=== PATIENT | female | born 1980 | race African-American/Black ===

== ENCOUNTER 2017-01-20 18:09 | Inpatient (IN) | payer OTHER ==
[2017-01-20 18:35] VITALS: BMI 24.5
--- NOTE | 2017-01-20 18:45 | HP ---
COWS - Scale Resting Pulse: 0= [place] 80 or Below Sweatin=Flushed/Facial Moisture Restless Observation: 1= Difficult to Sit Still Pupil Size: 2= Moderately Dilated Bone or Joint Aches: 1= Mild Discomfort Runny Nose/ Eye Tearin= Runny Nose/Eyes GI Upset > 30mins: 1= Stomach Cramp Tremor Observation: 2= Slight Tremor Visible Yawning Observation: 1= 1-2x During Session Anxiety or Irritability: 2=Irritable/Anxious Goose Flesh Skin: 0=Smooth Skin COWS Score: 14 Admission ROS S - [facility] Chief Complaint: Withdrawal sx. Allergies/Adverse Reactions: Allergies Allergy/AdvReac Type Severity Reaction Status Date / Time mushroom Allergy Severe Rash Verified 09/20/16 13:23 No Known Drug Allergies Allergy Verified 09/20/16 13:23 NKDA Allergy Uncoded 09/18/16 16:02 History of Present Illness: 36 y/o woman with a long hx. of drug dependence is admitted for detox.Pt. has been in previous detox,denies being drug free for a significant period. Exam Limitations: No Limitations - Ebola screening Have you traveled outside of the country in the last 21 days: No Have you had contact with anyone from an Ebola affected area: No Have you been sick,other than usual withdrawal symptoms: No Do you have a fever: No - Review of Systems Constitutional: Diaphoresis EENT: reports: Nose Congestion Respiratory: reports: No Symptoms reported Cardiac: reports: No Symptoms Reported GI: reports: Nausea, Abdominal cramping : reports: No Symptoms Reported Musculoskeletal: reports: Back Pain, Joint Pain, Muscle Pain Integumentary: reports: Sweating Neuro: reports: Headache, Tremors Endocrine: reports: No Symptoms Reported Hematology: reports: No Symptoms Reported Psychiatric: reports: No Sypmtoms Reported Other Systems: Reviewed and Negative Patient History - Patient Medical History Hx Anemia: No Hx Asthma: Yes Hx Chronic Obstructive Pulmonary Disease (COPD): No Hx Cancer: No Hx Cardiac Disorders: No Hx Congestive Heart Failure: No Hx Hypertension: Yes Hx Hypercholesterolemia: No Hx Pacemaker: No HX Cerebrovascular Accident: No Hx Seizures: No Hx Dementia: No Hx Diabetes: No Hx Gastrointestinal Disorders: No Hx Liver Disease: No Hx Genitourinary Disorders: No Hx Sexually Transmitted Disorders: Yes (chlamydia) Hx Renal Disease (ESRD): No Hx Thyroid Disease: No Hx Human Immunodeficiency Virus (HIV): No Hx Hepatitis C: No Hx Depression: Yes (thoughts in the past) Hx Suicide Attempt: Yes Hx Bipolar Disorder: No Hx Schizophrenia: No - Patient Surgical History Past Surgical History: No Hx Neurologic Surgery: No Hx Cataract Extraction: No Hx Cardiac Surgery: No Hx Lung Surgery: No Hx Breast Surgery: No Hx Breast Biopsy: No Hx Abdominal Surgery: No Hx Appendectomy: No Hx Cholecystectomy: No Hx Genitourinary Surgery: No Hx Section: No Hx Orthopedic Surgery: No Other Surgical History: drainage of bartholin cyst left side Anesthesia Reaction: No - PPD History Previous Implant?: Yes Documented Results: Negative w/proof Implanted On Prior [facility] Admission?: Yes Date: 01/01/16 Results: 0mm PPD to be Administered?: Yes - Reproductive History Patient is a Female of Child Bearing Age (11 -55 yrs old): Yes Last Menstrual Period: 01/10/17 Patient : No - Smoking Cessation Smoking history: Current every day smoker Have you smoked in the past 12 months: Yes Aproximately how many cigarettes per day: 20 Cigars Per Day: 0 Hx Chewing Tobacco Use: No Initiated information on smoking cessation: Yes 'Breaking Loose' booklet given: 01/20/17 - Substance & Tx. History Hx Alcohol Use: No Hx Substance Use: Yes Substance Use Type: Cocaine, Heroin Hx Substance Use Treatment: Yes (Detox) - Substances Abused Crack Route: Smoking Frequency: Daily Amount used: $100-200.00 Age of first use: 12 Date of Last Use: 01/20/17 Heroin Route: Inhalation Frequency: Daily Amount used: 10 bags Age of first use: 22 Date of Last Use: 01/19/17 (last night into this AM) Family Disease History - Family Disease History Family Disease History: CA: Mother, Other: Father (SHOT ) Admission Physical Exam BHS - Vital Signs Vital Signs: Vital Signs - 24 hr 01/20/17 18:31 Temperature 98.2 F Pulse Rate 75 Respiratory 18 Rate Blood Pressure 134/86 - Physical General Appearance: Yes: Irritable, Sweating, Anxious HEENTM: Yes: Nasal Congestion, Rhinorrhea Respiratory: Yes: Chest Non-Tender, Lungs Clear, Normal Breath Sounds Neck: Yes: Supple Breast: Yes: Breast Exam Deferred Cardiology: Yes: Regular Rhythm, Regular Rate, S1, S2 Abdominal: Yes: Normal Bowel Sounds, Non Tender, Soft Genitourinary: Yes: Within Normal Limits Back: Yes: Within Normal Limits Musculoskeletal: Yes: Within Normal Limits Extremities: Yes: Tremors Neurological: Yes: Fully Oriented, Alert Integumentary: Yes: Diaphoresis Lymphatic: Yes: Within Normal Limits - Diagnostic (1) Opioid dependence with withdrawal Current Visit: Yes Status: Acute (2) Cocaine dependence Current Visit: Yes Status: Chronic Qualifiers: Substance use status: uncomplicated Qualified Code(s): F14.20 - Cocaine dependence, uncomplicated Cleared for Admission [facility] - Detox or Rehab [facility] Level of Care: Medically Managed Detox Regimen/Protocol: Methadone [facility] Breath Alcohol Content Breath Alcohol Content: 0 Urine Pregancy Test - Result Urine Test Results: Negative- NO Line Present Urine Drug Screen - Results Drug Screen Negative: No Urine Drug Screen Results: DAMION-Cocaine, OPI-Opiates
[2017-01-20] MEDS ORDERED: MAG HYDROX/AL HYDROX/SIMETH 30 ML UNIT-DOSE CUP PO PRN (18:53)
[2017-01-20] MEDS ORDERED: guaiFENesin/D-METHORPHAN HB 10 ML UNIT-DOSE CUPS PO PRN (18:53)
[2017-01-20] MEDS ORDERED: hydrOXYzine PAMOATE 50 MG CAPSULE (FP) PO PRN (18:53)
[2017-01-20] MEDS ORDERED: MAGNESIUM CITRATE 300 ML BOTTLE PO PRN (18:53)
[2017-01-20] MEDS ORDERED: diazePAM 5 MG TABLET PO PRN (18:53)
[2017-01-20] MEDS ORDERED: LOPERAMIDE HCL 2 MG CAPSULE PO PRN (18:53)
[2017-01-20] MEDS ORDERED: NICOTINE POLACRILEX 2 MG GUM BC PRN (18:53)
[2017-01-20] MEDS ORDERED: ACETAMINOPHEN 325 MG TABLET (FP) PO PRN (18:53)
[2017-01-20] MEDS ORDERED: METHADONE HCL 10 MG TABLET (FOR DETOX USE ONLY) PO ONE ×2 (18:53→23:00)
[2017-01-20] MEDS ORDERED: P-EPHED 60MG/TRIPROLIDI 2.5MG TABLET PO PRN (18:53)
[2017-01-20] MEDS ORDERED: IBUPROFEN 400 MG TABLET (FP) PO PRN (18:53)
[2017-01-20] MEDS ORDERED: MAGNESIUM HYDROX 2400MG/30ML ORAL SUSPENSION 30 ML CUP PO PRN (18:53)
[2017-01-20] MEDS ORDERED: MENTHOL/PHENOL 1 EACH UD MM PRN (18:53)
[2017-01-20] MEDS ORDERED: ALBUTEROL SO4 6.7 GM HFA INHALER IH PRN (18:56)
[2017-01-20] MEDS: NICOTINE 21 MG/24 HOURS TOPICAL PATCH TD SCH (19:52)
[2017-01-20] MEDS: BUDESONIDE/FORMETEROL FUMARATE 80/4.5 mcg INHALER IH SCH (22:55)
[2017-01-20] MEDS: THIAMINE HCL 100 MG TABLET (FP) PO SCH (22:56)
[2017-01-21] MEDS ORDERED: METHADONE HCL 10 MG TABLET (FOR DETOX USE ONLY) PO ONE (10:00)
[2017-01-21] MEDS: BUDESONIDE/FORMETEROL FUMARATE 80/4.5 mcg INHALER IH SCH ×2 (11:06→22:19)
[2017-01-21] MEDS: NICOTINE 21 MG/24 HOURS TOPICAL PATCH TD SCH (11:06)
[2017-01-21] MEDS: PRENATAL VITAMINS W/ FOLIC ACID TABLET (FP) PO SCH (11:06)
[2017-01-21 11:18] LABS: ALK PHOS 57 U/L (45-117); ANION GAP 5 (8-16); BILIRUBIN,TOTAL 0.4 mg/dL (0.2-1.0); CALCIUM 8.2 mg/dL (8.5-10.1); CO2 29 mmol/L (21-32); CREATININE 0.7 mg/dL (0.55-1.02); GLUCOSE,RANDOM 88 mg/dL (74-106); SGOT/AST 19 U/L (15-37); SGPT/ALT 25 U/L (12-78)
[2017-01-21 11:41] LABS: MCH 33.2 pg (25.7-33.7); MCHC 34.4 g/dl (32.0-36.0); MEAN CELL VOLUME 96.3 fl (80-96); MEAN PLT VOLUME 8.5 fl (7.5-11.1); PLATELET COUNT 230 K/MM3 (134-434); RDW 12.1 % (11.6-15.6); WHITE BLOOD COUNT 5.7 K/mm3 (4.0-10.0)
[2017-01-21 11:45] LABS: HIV 1 & 2 AB NEGATIVE; HIV 1 AGp24 NEGATIVE
--- NOTE | 2017-01-21 12:01 | PN ---
S COWS - Scale Resting Pulse: 0= [place] 80 or Below Sweatin= Chills/Flushing Restless Observation: 3= Extraneous Movement Pupil Size: 1= Pupils >than Normal Bone or Joint Aches: 2= Severe Diffuse Aches Runny Nose/ Eye Tearin= Runny Nose/Eyes GI Upset > 30mins: 3= Vomiting/Diarrhea Tremor Observation of Outstretched Hands: 2= Slight Tremor Visible Yawning Observation: 1= 1-2x During Session Anxiety or Irritability: 2=Irritable/Anxious [facility] Progress Note (SOAP) Subjective: ALERT,IRRITABLE,ANXIOUS,INTERRUPTED SLEEP,TREMOR,PAIN IN THE BODY AND BACK Objective: 01/21/17 11:59 Vital Signs Temperature 98.2 F 01/21/17 10:00 Pulse Rate 63 01/21/17 10:00 Respiratory Rate 16 01/21/17 10:00 Blood Pressure 132/95 01/21/17 10:00 O2 Sat by Pulse Oximetry (%) EKG NSR,NORMAL ECG Laboratory Last Values WBC 5.7 K/mm3 (4.0-10.0) 01/21/17 08:00 RBC 3.52 M/mm3 (3.60-5.2) L 01/21/17 08:00 Hgb 11.7 GM/dL (10.7-15.3) 01/21/17 08:00 Hct 33.9 % (32.4-45.2) 01/21/17 08:00 MCV 96.3 fl (80-96) H 01/21/17 08:00 MCHC 34.4 g/dl (32.0-36.0) 01/21/17 08:00 RDW 12.1 % (11.6-15.6) 01/21/17 08:00 Plt Count 230 K/MM3 (134-434) 01/21/17 08:00 MPV 8.5 fl (7.5-11.1) 01/21/17 08:00 Sodium 141 mmol/L (136-145) 01/21/17 08:00 Potassium 4.1 mmol/L (3.5-5.1) 01/21/17 08:00 Chloride 107 mmol/L (98-107) 01/21/17 08:00 Carbon Dioxide 29 mmol/L (21-32) 01/21/17 08:00 Anion Gap 5 (8-16) L 01/21/17 08:00 BUN 15 mg/dL (7-18) D 01/21/17 08:00 Creatinine 0.7 mg/dL (0.55-1.02) 01/21/17 08:00 Creat Clearance w eGFR > 60 (>60) 01/21/17 08:00 Random Glucose 88 mg/dL (74-106) 01/21/17 08:00 Calcium 8.2 mg/dL (8.5-10.1) L 01/21/17 08:00 Total Bilirubin 0.4 mg/dL (0.2-1.0) D 01/21/17 08:00 AST 19 U/L (15-37) 01/21/17 08:00 ALT 25 U/L (12-78) D 01/21/17 08:00 Alkaline Phosphatase 57 U/L (45-117) 01/21/17 08:00 Total Protein 6.0 g/dl (6.4-8.2) L 01/21/17 08:00 Albumin 3.0 g/dl (3.4-5.0) L 01/21/17 08:00 RPR Titer Nonreactive (NONREACTIVE) 01/21/17 08:00 HIV 1&2 Antibody Screen Negative 01/21/17 08:00 HIV P24 Antigen Negative 01/21/17 08:00 LABS PENDING Assessment: 01/21/17 12:01 WITHDRAWAL SYMPTOM Plan: CONTINUE DETOX
--- NOTE | 2017-01-21 12:32 | EKG ---
Test Reason : Blood Pressure : / mmHG Vent. Rate : 066 BPM Atrial Rate : 066 BPM P-R Int : 118 ms QRS Dur : 080 ms QT Int : 408 ms P-R-T Axes : 061 060 019 degrees QTc Int : 427 ms NORMAL SINUS RHYTHM NONSPECIFIC ST ABNORMALITY NO PREVIOUS ECGS AVAILABLE Confirmed by BHUPINDER DEL VALLE MD ([id number]) on 01/21/2017 12:32:20 PM Referred By: Tristian Patel Confirmed By:BHUPINDER DEL VALLE MD
[2017-01-21] MEDS: THIAMINE HCL 100 MG TABLET (FP) PO SCH (22:20)
[2017-01-22] MEDS ORDERED: METHADONE HCL 5 MG TABLET (FOR DETOX USE ONLY) PO ONE (10:00)
[2017-01-22] MEDS: PRENATAL VITAMINS W/ FOLIC ACID TABLET (FP) PO SCH (10:10)
[2017-01-22] MEDS: BUDESONIDE/FORMETEROL FUMARATE 80/4.5 mcg INHALER IH SCH ×2 (10:10→23:22)
[2017-01-22] MEDS: NICOTINE 21 MG/24 HOURS TOPICAL PATCH TD SCH (10:11)
--- NOTE | 2017-01-22 10:44 | PN ---
BHS COWS - Scale Resting Pulse: 1= [place] 81-100 Sweatin=Flushed/Facial Moisture Restless Observation: 1= Difficult to Sit Still Pupil Size: 0= Normal to Room Light Bone or Joint Aches: 2= Severe Diffuse Aches Runny Nose/ Eye Tearin= Nasal Congestion GI Upset > 30mins: 0= None Tremor Observation of Outstretched Hands: 2= Slight Tremor Visible Yawning Observation: 2= >3x During Session Anxiety or Irritability: 1=Feels Anxious/Irritable Goose Flesh Skin: 0=Smooth Skin COWS Score: 12 BHS Progress Note (SOAP) Subjective: sweats body aches agitation irritable interrupted sleep Objective: 01/22/17 10:43 Vital Signs Temperature 98.6 F 01/22/17 09:54 Pulse Rate 89 01/22/17 09:54 Respiratory Rate 18 01/22/17 09:54 Blood Pressure 124/89 01/22/17 09:54 O2 Sat by Pulse Oximetry (%) Laboratory Tests 01/21/17 01/21/17 01/21/17 08:00 08:00 08:00 WBC 5.7 RBC 3.52 L Hgb 11.7 Hct 33.9 MCV 96.3 H MCHC 34.4 RDW 12.1 Plt Count 230 MPV 8.5 Sodium 141 Potassium 4.1 Chloride 107 Carbon Dioxide 29 Anion Gap 5 L BUN 15 D Creatinine 0.7 Creat Clearance w eGFR > 60 Random Glucose 88 Calcium 8.2 L Total Bilirubin 0.4 D AST 19 ALT 25 D Alkaline Phosphatase 57 Total Protein 6.0 L Albumin 3.0 L RPR Titer Nonreactive HIV 1&2 Antibody Screen HIV P24 Antigen 01/21/17 08:00 WBC RBC Hgb Hct MCV MCHC RDW Plt Count MPV Sodium Potassium Chloride Carbon Dioxide Anion Gap BUN Creatinine Creat Clearance w eGFR Random Glucose Calcium Total Bilirubin AST ALT Alkaline Phosphatase Total Protein Albumin RPR Titer HIV 1&2 Antibody Screen Negative HIV P24 Antigen Negative awake/alert ambulating no acute distress Assessment: 01/22/17 10:43 withdrawal sx Plan: continue detox increase fluids
--- NOTE | 2017-01-22 11:46 | CONSULT ---
[facility] Psychiatric Consult - Data Date of interview: 01/22/17 Admission source: [facility] Identifying data: This is 36 years old female with psychiatric hospitalization history intoxicated with: Opioids and Cocaine Substance Abuse History: - Smoking Cessation. Smoking history: Current every day smoker. Have you smoked in the past 12 months: Yes. Aproximately how many cigarettes per day: 20. Cigars Per Day: 0. Hx Chewing Tobacco Use: No. Initiated information on smoking cessation: Yes. 'Breaking Loose' booklet given : 01/20/17. - Substance & Tx. History. Hx Alcohol Use: No. Hx Substance Use: Yes. Substance Use Type: Cocaine, Heroin. Hx Substance Use Treatment: Yes ( Detox). - Substances Abused. Crack. Route: Smoking. Frequency: Daily. Amount used: $100-200.00. Age of first use: 12. Date of Last Use: 01/20/17. * * Heroin. Route: Inhalation. Frequency: Daily. Amount used: 10 bags. Age of first use: 22. Date of Last Use: 01/19/17 (last night into this AM) Medical History: Arthritis history, MMTP HISTORY Psychiatric History: Patient reports history of depression, reports patient taking prior to admission: Celexa 20mg poqd. Trazodone 50mg po qhs. Seroquel 50mg po qhs. Patien t willing to continue current medications at Detox program as well Physical/Sexual Abuse/Trauma History: Denies Additional Comment: Celexa 20mg poqd. Trazodone 50mg po qhs. Seroquel 50mg po qhs Mental Status Exam - Mental Status Exam Alert and Oriented to: Person Cognitive Function: Fair Patient Appearance: Unkempt Mood: Sad Affect: Flat Patient Behavior: Sedated Speech Pattern: Delayed Voice Loudness: Mildly Soft/Quiet Thought Process: Circumstantial Thought Disorder: Being Controlled Hallucinations: Denies Suicidal Ideation: Denies Homicidal Ideation: Denies Insight/Judgement: Fair Sleep: Difficulty falling asleep Appetite: Fair Muscle strength/Tone: Mild Hypotonicity Gait/Station: Shuffling Additional Comments: Celexa 20mg poqd. Trazodone 50mg po qhs. Seroquel 50mg po qhs Psychiatric Findings - Problem List ([place] 1, 2,3) (1) Opioid dependence with withdrawal Current Visit: Yes Status: Acute (2) Cocaine dependence Current Visit: Yes Status: Chronic Qualifiers: Substance use status: uncomplicated Qualified Code(s): F14.20 - Cocaine dependence, uncomplicated (3) Manic depressive illness Current Visit: No Status: Acute (4) Methadone maintenance therapy patient Current Visit: No Status: Acute (5) Uncomplicated opioid dependence Current Visit: No Status: Acute (6) Depressive disorder Current Visit: No Status: Chronic (7) Nicotine dependence Current Visit: No Status: Chronic Qualifiers: Nicotine product type: cigarettes Substance use status: uncomplicated Qualified Code(s): F17.210 - Nicotine dependence, cigarettes, uncomplicated (8) Opioid dependence on agonist therapy Current Visit: No Status: Chronic (9) Substance induced mood disorder Current Visit: No Status: Chronic - Initial Treatment Plan Initial Treatment Plan: Celexa 20mg poqd. Trazodone 50mg po qhs. Seroquel 50mg po qhs
[2017-01-22] MEDS: CITALOPRAM HYDROBROMIDE 20 MG TABLET (FP) PO SCH (14:34)
[2017-01-22] MEDS: THIAMINE HCL 100 MG TABLET (FP) PO SCH (22:27)
[2017-01-22] MEDS: diphenhydrAMINE HCL 50 MG CAPSULE PO PRN (22:27)
[2017-01-22] MEDS: traZODone HCL 50 MG TABLET (FP) PO SCH (22:27)
[2017-01-22] MEDS: QUEtiapine FUMARATE 50 MG TABLET PO SCH (22:27)
[2017-01-23] MEDS ORDERED: METHADONE HCL 5 MG TABLET (FOR DETOX USE ONLY) PO ONE (10:00)
--- NOTE | 2017-01-23 10:45 | PN ---
BHS Progress Note (SOAP) Subjective: feeling better , sweats Objective: 01/23/17 10:44 Vital Signs Temperature 99.0 F 01/23/17 10:18 Pulse Rate 88 01/23/17 10:18 Respiratory Rate 18 01/23/17 10:18 Blood Pressure 140/66 01/23/17 10:18 O2 Sat by Pulse Oximetry (%) Laboratory Tests 01/21/17 01/21/17 01/21/17 08:00 08:00 08:00 WBC 5.7 RBC 3.52 L Hgb 11.7 Hct 33.9 MCV 96.3 H MCHC 34.4 RDW 12.1 Plt Count 230 MPV 8.5 Sodium 141 Potassium 4.1 Chloride 107 Carbon Dioxide 29 Anion Gap 5 L BUN 15 D Creatinine 0.7 Creat Clearance w eGFR > 60 Random Glucose 88 Calcium 8.2 L Total Bilirubin 0.4 D AST 19 ALT 25 D Alkaline Phosphatase 57 Total Protein 6.0 L Albumin 3.0 L RPR Titer Nonreactive HIV 1&2 Antibody Screen HIV P24 Antigen 01/21/17 08:00 WBC RBC Hgb Hct MCV MCHC RDW Plt Count MPV Sodium Potassium Chloride Carbon Dioxide Anion Gap BUN Creatinine Creat Clearance w eGFR Random Glucose Calcium Total Bilirubin AST ALT Alkaline Phosphatase Total Protein Albumin RPR Titer HIV 1&2 Antibody Screen Negative HIV P24 Antigen Negative pt aox3 in nad ambulating 01/23/17 10:45 Assessment: 01/23/17 10:45 withdrawal sx's Plan: cont. detox increase fluids
[2017-01-23] MEDS: PRENATAL VITAMINS W/ FOLIC ACID TABLET (FP) PO SCH (10:57)
[2017-01-23] MEDS: CITALOPRAM HYDROBROMIDE 20 MG TABLET (FP) PO SCH (10:58)
[2017-01-23] MEDS: NICOTINE 21 MG/24 HOURS TOPICAL PATCH TD SCH (10:59)
[2017-01-23] MEDS: BUDESONIDE/FORMETEROL FUMARATE 80/4.5 mcg INHALER IH SCH ×2 (11:00→23:29)
[2017-01-23 16:08] LABS: URINE APPEARANCE CLOUDY; URINE BILIRUBIN NEGATIVE (NEGATIVE); URINE BLOOD NEGATIVE (NEGATIVE); URINE COLOR YELLOW; URINE GLUCOSE (UA) NEGATIVE (NEGATIVE); URINE KETONE NEGATIVE (NEGATIVE); URINE LEUK ESTERASE NEGATIVE (NEGATIVE); URINE NITRITE NEGATIVE (NEGATIVE); URINE PROTEIN NEGATIVE (NEGATIVE); URINE UROBILINOGEN 4.0 E.U/dl E.U./dl (0.2-1.0)
[2017-01-23] MEDS: THIAMINE HCL 100 MG TABLET (FP) PO SCH (22:34)
[2017-01-23] MEDS: traZODone HCL 50 MG TABLET (FP) PO SCH (22:35)
[2017-01-23] MEDS: QUEtiapine FUMARATE 50 MG TABLET PO SCH (22:35)
[2017-01-23] MEDS: diphenhydrAMINE HCL 50 MG CAPSULE PO PRN (22:36)
[2017-01-24] MEDS ORDERED: METHADONE HCL 10 MG TABLET (FOR DETOX USE ONLY) PO ONE (10:00)
[2017-01-24] MEDS: CITALOPRAM HYDROBROMIDE 20 MG TABLET (FP) PO SCH (10:40)
[2017-01-24] MEDS: NICOTINE 21 MG/24 HOURS TOPICAL PATCH TD SCH (10:40)
[2017-01-24] MEDS: BUDESONIDE/FORMETEROL FUMARATE 80/4.5 mcg INHALER IH SCH ×2 (10:40→22:34)
[2017-01-24] MEDS: PRENATAL VITAMINS W/ FOLIC ACID TABLET (FP) PO SCH (10:41)
--- NOTE | 2017-01-24 11:58 | PN ---
BHS Progress Note (SOAP) Subjective: feeling better little sweats Objective: 01/24/17 11:58 Vital Signs Temperature 98.8 F 01/24/17 10:10 Pulse Rate 91 H 01/24/17 10:10 Respiratory Rate 18 01/24/17 10:10 Blood Pressure 126/72 01/24/17 10:10 O2 Sat by Pulse Oximetry (%) awake/alert ambulating no acute distress Assessment: 01/24/17 11:58 withdrawal sx Plan: continue detox increase fluids d/c in am
[2017-01-24] MEDS: QUEtiapine FUMARATE 50 MG TABLET PO SCH (22:35)
[2017-01-24] MEDS: diphenhydrAMINE HCL 50 MG CAPSULE PO PRN (22:35)
[2017-01-24] MEDS: THIAMINE HCL 100 MG TABLET (FP) PO SCH (22:35)
[2017-01-24] MEDS: traZODone HCL 50 MG TABLET (FP) PO SCH (22:35)
[2017-01-25] MEDS ORDERED: METHADONE HCL 5 MG TABLET (FOR DETOX USE ONLY) PO ONE (06:00)
[2017-01-25 07:17] VITALS: BP 111/66; PULSE 67; TEMP 98.2
--- NOTE | 2017-01-25 10:00 | DS ---
[facility] Detox Discharge Summary Admission Date: 01/20/17 - History Present History: Cocaine Dependence, Opioid Dependence - Physical Exam Results Vital Signs: Vital Signs Temperature 98.2 F 01/25/17 07:16 Pulse Rate 67 01/25/17 07:16 Respiratory Rate 16 01/25/17 07:16 Blood Pressure 111/66 01/25/17 07:16 O2 Sat by Pulse Oximetry (%) - Treatment Hospital Course: Detox Protocol Followed, Detoxed Safely, Responded well, Discharged Condition Good - Medication Discharge Medications: Ambulatory Orders Citalopram Hydrobromide [Celexa -] 20 mg PO DAILY 11/25/15 Quetiapine Fumarate [Seroquel -] 50 mg PO HS #30 01/21/16 Trazodone HCl 50 mg PO HS #30 tablet 08/29/16 Albuterol Sulfate Inhaler - [Ventolin Hfa Inhaler -] 2 inh PO Q4H PRN 09/18/16 Budesonide/Formeterol Fumarate [SYMBICORT 80/4.5mcg -] 1 inh PO BID 09/18/16 Citalopram Hydrobromide [Celexa -] 20 mg PO DAILY #30 tablet 01/22/17 Quetiapine Fumarate [Seroquel -] 50 mg PO HS #30 tablet 01/22/17 Trazodone HCl [Desyrel -] 50 mg PO HS #30 tablet 01/22/17 - Diagnosis (1) Opioid dependence with withdrawal Current Visit: Yes Status: Chronic (2) Cocaine dependence Current Visit: Yes Status: Chronic Qualifiers: Substance use status: uncomplicated Qualified Code(s): F14.20 - Cocaine dependence, uncomplicated (3) Depressive disorder Current Visit: Yes Status: Chronic (4) Nicotine dependence Current Visit: Yes Status: Chronic Qualifiers: Nicotine product type: cigarettes Substance use status: uncomplicated Qualified Code(s): F17.210 - Nicotine dependence, cigarettes, uncomplicated - AMA Did Patient Leave Against Medical Advice: No
== END 2017-01-25 09:06 | disposition home or self-care (01) | DRG 773 ==
LOC: YASAS 18:09 → Y6N 18:41
PROVIDERS: ADMIT Internal Medicine; ATTEND Internal Medicine Addiction Medicine
PROC: HZ2ZZZZ Detoxification Services for Substance Abuse Treatment (ICD-10-PCS; principal; 2017-01-25)
DX: F11.23 Opioid dependence with withdrawal (principal); F14.20 Cocaine dependence, uncomplicated; F17.210 Nicotine dependence, cigarettes, uncomplicated; F19.24 Other psychoactive substance dependence with psychoactive substance-induced mood disorder; F31.9 Bipolar disorder, unspecified
CPT/HCPCS: 36415; 80053; 81003; 85027; 86593; 87389; 93005; 93010